=== PATIENT | male | born 1940 | race Caucasian/White ===

== ENCOUNTER 2016-09-27 14:00 | Inpatient (IN) | payer MEDICARE, BC ==
[~2016-09-27] VITALS: Ht 180.3 cm; Wt 81.6 kg
--- NOTE | 2016-09-27 14:08 | NUR ---
at the bedside.
[2016-09-27] MEDS ORDERED: IV NORMAL SALINE 1000 ML BAG IV ONE (14:15)
--- NOTE | 2016-09-27 14:17 | NUR ---
PT LEFT ER FOR CT.
[2016-09-27] MEDS ORDERED: CITA20TA11 PO (14:35)
[2016-09-27] MEDS ORDERED: TRAZ-144 PO (14:35)
[2016-09-27] MEDS ORDERED: NATE60TA4 PO (14:35)
[2016-09-27] MEDS ORDERED: MEMA28CA PO (14:35)
[2016-09-27] MEDS ORDERED: WARF3TAB6 PO (14:35)
[2016-09-27] MEDS ORDERED: QUET25TA PO ×2 (14:35)
[2016-09-27] MEDS ORDERED: DONE23TA3 PO (14:35)
[2016-09-27] MEDS ORDERED: LEVO100T10 PO (14:35)
[2016-09-27] MEDS ORDERED: LEVE500T20 PO (14:35)
[2016-09-27] MEDS ORDERED: METF500T4 PO (14:35)
[2016-09-27] MEDS ORDERED: ATOR20TA PO (14:35)
[2016-09-27 15:03] LABS: BASOPHILS # (AUTO) 0.1 K/uL (0.0-0.2); BASOPHILS % (AUTO) 0.8 % (0.0-2.0); EOSINOPHILS # (AUTO) 0.2 K/uL (0.0-0.7); EOSINOPHILS % (AUTO) 1.7 % (0.0-7.0); HEMATOCRIT 37.3 % (40.0-50.0); HEMOGLOBIN 12.6 g/dL (14.0-18.0); LYMPHOCYTES % (AUTO) 19.9 % (20.5-51.5); MEAN CORPUSCULAR HEMOGLOBIN 30.7 uug (27.0-31.0); MEAN CORPUSCULAR HGB CONC 34 g/dL (32.0-37.0); MEAN CORPUSCULAR VOLUME 90.6 fL (82.0-92.0); MONOCYTES # (AUTO) 0.7 K/uL (0.1-1.30); MONOCYTES % (AUTO) 6.7 % (0.0-11.0); NEUTROPHILS # (AUTO) 7.2 K/uL (1.8-8.9); NEUTROPHILS % (AUTO) 70.9 % (38.5-71.5); PLATELET COUNT (AUTO) 334 K/uL (150-450); RED BLOOD CELL COUNT(AUTO) 4.11 MIL/uL (4.70-6.10); RED CELL DISTRIBUTION WIDTH 14.3 % (11.5-14.5); WHITE BLOOD COUNT (AUTO) 10.2 K/uL (4.0-11.2)
[2016-09-27 15:17] LABS: CREATININE 1.2 mg/dL (0.6-1.3); POTASSIUM 4.2 mmol/L (3.5-5.1)
--- NOTE | 2016-09-27 15:37 | NUR ---
DR CORONADO SPOKE TO DR TURCIOS(PT'S PMD).
--- NOTE | 2016-09-27 15:52 | NUR ---
Full telephone SBAR report received by RECORDING STUDIO SET UP WORKERSHANE Beaulieu.
--- NOTE | 2016-09-27 16:30 | NUR ---
Pt received from ER and admitted to room #211. Pt alert, confused with family at the bedside. Pt NSR HR 60's on monitoring analyst. Pt stable and nad noted upon admission.
[2016-09-27] MEDS ORDERED: ONDANSETRON 4 MG/2 ML VIAL IV PRN (18:30)
[2016-09-27] MEDS ORDERED: DEXTROSE 50% 50 ML DISP.SYRIN IV PRN (18:30)
[2016-09-27] MEDS ORDERED: ACETAMINOPHEN 325 MG TABLET PO PRN (18:30)
[2016-09-27] MEDS ORDERED: HYDROCODONE/APAP 5-325MG TABLET PO PRN (18:30)
[2016-09-27] MEDS ORDERED: MAGNESIUM HYDROXIDE 30 ML LIQUID UDC PO PRN (18:30)
--- NOTE | 2016-09-27 18:47 | NUR ---
End of shift: Pt resting in bed awake, alert/confused with fall precautions and safety measures maintained. All needs met. Pt stable and nad noted.
[2016-09-27 19:00] VITALS: BP 125/66
[2016-09-27] MEDS: TRAZODONE 50 MG TABLET PO SCH (20:27)
[2016-09-27] MEDS: LEVETIRACETAM 500 MG TABLET PO SCH (20:28)
[2016-09-27] MEDS: DOCUSATE SODIUM 100 MG CAPSULE PO SCH (20:28)
[2016-09-27] MEDS: CITALOPRAM 20 MG TABLET PO SCH (20:28)
[2016-09-27] MEDS: ATORVASTATIN 20 MG TABLET PO SCH (20:28)
[2016-09-27] MEDS: QUETIAPINE FUMARATE 25 MG TABLET PO SCH (20:33)
[2016-09-27] MEDS ORDERED: WARFARIN SODIUM 3 MG TABLET PO SCH (21:00)
[2016-09-27] MEDS ORDERED: DOCUSATE SODIUM 250 MG CAPSULE PO SCH (21:00)
[2016-09-27] MEDS: BLOOD SUGAR DIAGNOSTIC 1 EACH STRIP VI SCH (21:05)
[2016-09-27] MEDS: INSULIN REGULAR, HUMAN 300 UNIT/3 ML VIAL SQ PRN (21:08)
[2016-09-28] VITALS (7 sets, daily range): BP systolic 108–135; BP diastolic 56–67
--- NOTE | 2016-09-28 05:49 | NUR ---
PT IN BED RESTING, SLEPT MOST SHIFT, NO EPISODES OF AGITATION. DENIES ANY PAIN. IN NO ACUTE SIGNS OF DISTRESS, SAFETY MAINTAINED. CALL LIGHT WITHIN REACH.
[2016-09-28] MEDS: BLOOD SUGAR DIAGNOSTIC 1 EACH STRIP VI SCH ×4 (06:41→21:00)
[2016-09-28] MEDS: LEVOTHYROXINE SODIUM 100 MCG TABLET PO SCH (06:42)
[2016-09-28] MEDS: PANTOPRAZOLE SODIUM 40 MG TABLET.DR PO SCH (06:42)
[2016-09-28 07:08] LABS: ALBUMIN 2.9 g/dL (3.4-5.0); BILIRUBIN,TOTAL 0.4 mg/dL (0.2-1.0); CALCIUM 8.4 mg/dL (8.5-10.1); CREATININE 0.8 mg/dL (0.6-1.3); MAGNESIUM 1.5 mg/dL (1.8-2.4); PHOSPHOROUS 3.3 mg/dL (2.5-4.9); POTASSIUM 3.9 mmol/L (3.5-5.1); TOTAL PROTEIN, SERUM 5.7 g/dL (6.4-8.2)
[2016-09-28 07:09] LABS: BASOPHILS # (AUTO) 0.1 K/uL (0.0-0.2); BASOPHILS % (AUTO) 0.9 % (0.0-2.0); EOSINOPHILS # (AUTO) 0.2 K/uL (0.0-0.7); EOSINOPHILS % (AUTO) 2.5 % (0.0-7.0); HEMATOCRIT 34.3 % (40.0-50.0); HEMOGLOBIN 11.6 g/dL (14.0-18.0); LYMPHOCYTES # (AUTO) 2.1 K/uL (0.8-4.8); LYMPHOCYTES % (AUTO) 25.4 % (20.5-51.5); MEAN CORPUSCULAR HEMOGLOBIN 30.8 uug (27.0-31.0); MEAN CORPUSCULAR HGB CONC 34 g/dL (32.0-37.0); MEAN CORPUSCULAR VOLUME 91.6 fL (82.0-92.0); MONOCYTES # (AUTO) 0.6 K/uL (0.1-1.30); MONOCYTES % (AUTO) 7.5 % (0.0-11.0); NEUTROPHILS # (AUTO) 5.2 K/uL (1.8-8.9); NEUTROPHILS % (AUTO) 63.7 % (38.5-71.5); PLATELET COUNT (AUTO) 307 K/uL (150-450); RED BLOOD CELL COUNT(AUTO) 3.75 MIL/uL (4.70-6.10); RED CELL DISTRIBUTION WIDTH 14.2 % (11.5-14.5); WHITE BLOOD COUNT (AUTO) 8.2 K/uL (4.0-11.2)
[2016-09-28 07:17] LABS: THYROID STIMULATING HORMONE 0.65 mIU/mL (0.358-3.740)
[2016-09-28] MEDS: METFORMIN HCL 500 MG TABLET PO SCH ×2 (08:27→17:05)
[2016-09-28] MEDS: NATEGLINIDE 60 MG TABLET PO SCH ×3 (08:27→17:04)
[2016-09-28] MEDS: INSULIN REGULAR, HUMAN 300 UNIT/3 ML VIAL SQ PRN ×2 (08:31→12:11)
[2016-09-28] MEDS: MAGNESIUM SULFATE/D5W 100 ML IV SCH ×2 (10:51→12:09)
--- NOTE | 2016-09-28 11:59 | NUR ---
PHARMACY [place] [facility] [place] This is a 76 Y/O male admitted after a syncopal episode with past medical history of Alzheimer's disease/dementia, TIA, hypotension, NIDDM, atrial fibrillation, hypothyroidism, depression, hyperlipidemia, -VS Temp 97.4 , BP 112/56 , Pulse 50, Resp rate 18 -Lab WBC 8.2, H/H 11.6/34.3 , Plt 307, Na 144, K 3.9, Cl 110, BUN 15, SrCr 0.7, Hba1c 7.1, Ca8.4, albumin 2.9, phos 3.3, Mg 1.5 (bolus dose given) , Lipid panel WNL, INR 1.24 Allergies: NKA CURRENT LIST OF MEDICATIONS Lipitor 20mg po hs (hyprelipidemia) Celxa 20mg po hs (home med-depression) Trazodone 50mg po hs (home med-depression) Coumadin 3mg po hs (A fib) Protonix 40mg po 0700 (GI prophylaxis) Seroquel 12.5mg po 1200 (home med-depression) Seroquel 37.5mg po hs (home med- depression) Metformin 500mg po bidm (NIDDM) Starlix 60mg po tidwm (NIDDM) Colace 200mg po hs (constipation) Accu check with mild sliding scale coverage (while in hospital) [place] 5/325 mg po q4hprn moderate to severe pain (none used so far) Keppra 500mg po hs (home med-per neurologist continue for now) Synthroid 100 mcg po 0700 (hypothyroidism) MOM 30ml po hsprn constipation Tylenol 650mg po q6hprn temp, mild pain , GUTIERREZ ALL MEDICATIONS REVIEW OF TODAY THE FOLLOWING MEDICATIONS ON HIGH RISK LIST: Celexa, seroquel , [place]- May cause ataxia, impaired psychomotor function, syncope, additional falls. Follow fall precaution measures Celexa, Seroquel- May exacerbate or cause syndrome of inappropriate antidiuretic hormone secretion or hyponatremia; monitor sodium level closely. However,NA level WNL. Per Neurologist Hold aricept in the setting of bradycardia and syncope
[2016-09-28] MEDS: QUETIAPINE FUMARATE 25 MG TABLET PO SCH ×2 (12:10→21:30)
[2016-09-28 15:45] LABS: *BILIRUBIN,URIN NEGATIVE (NEGATIVE); *BLOOD, URINE NEGATIVE (NEGATIVE); *CLARITY,URINE CLEAR (CLEAR); *COLOR,URINE YELLOW (YELLOW); *KETONES,URINE NEGATIVE (NEGATIVE); *PROTEIN,URINE NEGATIVE (NEGATIVE); *UROBILINOGEN,URINE 0.2 E.U./dl (NORMAL); LEUKOCYTE ESTERASE ,URINE NEGATIVE (NEGATIVE); NITRITE, URINE NEGATIVE (NEGATIVE); PH,URINE 5.5 (5.0-8.0); UGLUCOSE NEGATIVE (NEGATIVE)
[2016-09-28 16:30] LABS: SQUAMOUS EPITHELIAL CELL,UR FEW /HPF (NONE SEEN); WBC,URINE 0-3 /HPF (0-3)
--- NOTE | 2016-09-28 19:30 | NUR ---
Received report from SHANE Vivar. Seen patient with his (Brielle) and daughter (roseline). Pt is very responsive but demented/forgetful. Very pleasant and follows commands. Denies any pain.
--- NOTE | 2016-09-28 20:00 | NUR ---
Orthostatic BP done: Sitting up: 120/66 HR 58; Standing up : 111/66 HR 81
--- NOTE | 2016-09-28 20:42 | NUR ---
Seen by EP (electrophysiology) doctor, evaluated as per request by Dr. Méndez. See EP doctor's notes.
[2016-09-28] MEDS: CITALOPRAM 20 MG TABLET PO SCH (21:30)
[2016-09-28] MEDS: DOCUSATE SODIUM 100 MG CAPSULE PO SCH (21:30)
[2016-09-28] MEDS: ATORVASTATIN 20 MG TABLET PO SCH (21:30)
[2016-09-28] MEDS: LEVETIRACETAM 500 MG TABLET PO SCH (21:30)
[2016-09-28] MEDS: TRAZODONE 50 MG TABLET PO SCH (21:30)
--- NOTE | 2016-09-29 | NUR ---
Seen patient in his room, awake and watching TV. Encouraged pt to sleep, fixed patient and made him comfortable, stretched his linen, provided blanket, turned off TV, encouraged to close eye (pt is very compliant), pt slept right away after being told.
[2016-09-29 04:00] VITALS: BP 127/69
--- NOTE | 2016-09-29 04:00 | NUR ---
Rounds made and saw pt sleeping soundly.
--- NOTE | 2016-09-29 05:00 | NUR ---
Resting comfortably.Breathing normally.
--- NOTE | 2016-09-29 06:00 | NUR ---
Administered am meds. Encouraged pt to sleep some more.Pt reported that he slept well.
[2016-09-29] MEDS: PANTOPRAZOLE SODIUM 40 MG TABLET.DR PO SCH ×2 (06:10→08:20)
[2016-09-29] MEDS: LEVOTHYROXINE SODIUM 100 MCG TABLET PO SCH ×2 (06:10→08:21)
[2016-09-29 06:15] LABS: BASOPHILS # (AUTO) 0.1 K/uL (0.0-0.2); BASOPHILS % (AUTO) 0.9 % (0.0-2.0); EOSINOPHILS # (AUTO) 0.3 K/uL (0.0-0.7); EOSINOPHILS % (AUTO) 3.5 % (0.0-7.0); HEMATOCRIT 33.6 % (40.0-50.0); HEMOGLOBIN 11.5 g/dL (14.0-18.0); LYMPHOCYTES # (AUTO) 3.2 K/uL (0.8-4.8); LYMPHOCYTES % (AUTO) 37.3 % (20.5-51.5); MEAN CORPUSCULAR HEMOGLOBIN 31.1 uug (27.0-31.0); MEAN CORPUSCULAR HGB CONC 34 g/dL (32.0-37.0); MEAN CORPUSCULAR VOLUME 90.9 fL (82.0-92.0); MONOCYTES # (AUTO) 0.7 K/uL (0.1-1.30); MONOCYTES % (AUTO) 7.6 % (0.0-11.0); NEUTROPHILS # (AUTO) 4.3 K/uL (1.8-8.9); NEUTROPHILS % (AUTO) 50.7 % (38.5-71.5); PLATELET COUNT (AUTO) 298 K/uL (150-450); RED CELL DISTRIBUTION WIDTH 13.9 % (11.5-14.5); WHITE BLOOD COUNT (AUTO) 8.6 K/uL (4.0-11.2)
[2016-09-29 06:57] LABS: BILIRUBIN,TOTAL 0.4 mg/dL (0.2-1.0); CALCIUM 8.7 mg/dL (8.5-10.1); CREATININE 0.9 mg/dL (0.6-1.3); MAGNESIUM 1.6 mg/dL (1.8-2.4); PHOSPHOROUS 3.2 mg/dL (2.5-4.9); POTASSIUM 3.8 mmol/L (3.5-5.1); TOTAL PROTEIN, SERUM 5.7 g/dL (6.4-8.2)
--- NOTE | 2016-09-29 07:05 | NUR ---
Report to SHANE Pradhan. Pt is currenty asleep.
[2016-09-29] MEDS: BLOOD SUGAR DIAGNOSTIC 1 EACH STRIP VI SCH ×4 (07:33→20:29)
[2016-09-29] MEDS: METFORMIN HCL 500 MG TABLET PO SCH ×2 (08:20→18:47)
[2016-09-29] MEDS: CHOLECALCIFEROL 1,000 UNIT TABLET PO SCH (08:20)
[2016-09-29] MEDS: NATEGLINIDE 60 MG TABLET PO SCH ×3 (08:20→17:10)
[2016-09-29] MEDS: MAGNESIUM SULFATE/D5W 100 ML IV SCH ×2 (10:20→10:22)
--- NOTE | 2016-09-29 11:45 | NUR ---
ORTHOSTATIC B/P= VCAGC=253/66, SITTING 131/78, STANDING 103/63 Addendum: 09/29/16 at 1526 by ESPERANZA KRAMER RN PULSE LYING= 52, PULSE SITTING= 54, PULSE STANDING= 65
[2016-09-29 11:50] VITALS: BP 105/58
[2016-09-29] MEDS: QUETIAPINE FUMARATE 25 MG TABLET PO SCH ×2 (12:43→20:21)
[2016-09-29] MEDS: INSULIN REGULAR, HUMAN 300 UNIT/3 ML VIAL SQ PRN ×2 (12:52→20:32)
[2016-09-29 15:42] VITALS: BP 131/78
[2016-09-29 19:00] VITALS: BP 108/64
--- NOTE | 2016-09-29 19:00 | NUR ---
AWAKE,COFUSED.DOESNT KNOW WHERE HE IS.UP TO THE BATHROOM WITH HELP. FALL PRECAUTION.BED ALARM ON, SIDE RAILS UP.
[2016-09-29] MEDS: DOCUSATE SODIUM 100 MG CAPSULE PO SCH (20:19)
[2016-09-29] MEDS: ATORVASTATIN 20 MG TABLET PO SCH (20:19)
[2016-09-29] MEDS: TRAZODONE 50 MG TABLET PO SCH (20:21)
[2016-09-29] MEDS: LEVETIRACETAM 500 MG TABLET PO SCH (20:21)
[2016-09-29] MEDS: CITALOPRAM 20 MG TABLET PO SCH (20:21)
[2016-09-29 20:49] VITALS: BP_SYST 108; BP_SYST 118; BP_SYST 99; BP_DIAS 61; BP_DIAS 65
--- NOTE | 2016-09-29 20:53 | NUR ---
STANDING 99/61 PULSE 86 SITTING 118/65 PULSE65 LYING 108/64 PULSE 54 Addendum: 09/29/16 at 2055 by NAKUL WANG RN Amended: Links added.
[2016-09-29 20:57] VITALS: BP 108/64
[2016-09-30 04:00] VITALS: BP 148/80
--- NOTE | 2016-09-30 06:16 | NUR ---
SLEPT AT INTERVALS,IN NO ACUTE DISTRESS.
[2016-09-30] MEDS: BLOOD SUGAR DIAGNOSTIC 1 EACH STRIP VI SCH ×4 (06:27→21:24)
[2016-09-30 06:49] LABS: BASOPHILS # (AUTO) 0.1 K/uL (0.0-0.2); BASOPHILS % (AUTO) 0.9 % (0.0-2.0); EOSINOPHILS # (AUTO) 0.3 K/uL (0.0-0.7); EOSINOPHILS % (AUTO) 3.9 % (0.0-7.0); HEMATOCRIT 35.7 % (40.0-50.0); LYMPHOCYTES % (AUTO) 34.4 % (20.5-51.5); MEAN CORPUSCULAR HEMOGLOBIN 30.4 uug (27.0-31.0); MEAN CORPUSCULAR HGB CONC 34 g/dL (32.0-37.0); MONOCYTES # (AUTO) 0.7 K/uL (0.1-1.30); MONOCYTES % (AUTO) 7.7 % (0.0-11.0); NEUTROPHILS # (AUTO) 4.7 K/uL (1.8-8.9); NEUTROPHILS % (AUTO) 53.1 % (38.5-71.5); PLATELET COUNT (AUTO) 309 K/uL (150-450); RED BLOOD CELL COUNT(AUTO) 3.96 MIL/uL (4.70-6.10); RED CELL DISTRIBUTION WIDTH 14.1 % (11.5-14.5); WHITE BLOOD COUNT (AUTO) 8.8 K/uL (4.0-11.2)
[2016-09-30] MEDS: METFORMIN HCL 500 MG TABLET PO SCH ×2 (08:04→18:25)
[2016-09-30] MEDS: CHOLECALCIFEROL 1,000 UNIT TABLET PO SCH (08:04)
[2016-09-30] MEDS: NATEGLINIDE 60 MG TABLET PO SCH ×3 (08:04→18:24)
[2016-09-30 08:09] LABS: ALBUMIN 3.1 g/dL (3.4-5.0); BILIRUBIN,TOTAL 0.3 mg/dL (0.2-1.0); CREATININE 0.9 mg/dL (0.6-1.3); MAGNESIUM 1.5 mg/dL (1.8-2.4); PHOSPHOROUS 3.1 mg/dL (2.5-4.9); POTASSIUM 3.8 mmol/L (3.5-5.1)
[2016-09-30 11:20] VITALS: BP 129/72
[2016-09-30] MEDS: QUETIAPINE FUMARATE 25 MG TABLET PO SCH ×2 (11:44→21:19)
[2016-09-30] MEDS: INSULIN REGULAR, HUMAN 300 UNIT/3 ML VIAL SQ PRN ×2 (11:46→21:30)
[2016-09-30] MEDS ORDERED: LIDOCAINE HCL 1% 20 ML VIAL ONE (13:59)
[2016-09-30] MEDS ORDERED: BACITRACIN 50,000 UNITS VIAL ONE (14:04)
[2016-09-30] MEDS: MAGNESIUM SULFATE/D5W 100 ML IV SCH ×2 (14:31→18:24)
[2016-09-30 15:51] VITALS: BP 130/67
--- NOTE | 2016-09-30 16:00 | NUR ---
OR staff here to bulk picker patient for surgery to insert loop recorder. Transferred by bed to OR with 2 assist in no acute distress. NPO since 0800. Diaper just changed for incontinence of urine. Saline lock intact to right forearm.
[2016-09-30] MEDS ORDERED: CEFAZOLIN 1 G VIAL MC ONE (16:49)
[2016-09-30] MEDS ORDERED: LIDOCAINE 1%-EPI 1:100,000 20 ML VIAL ONE (17:16)
--- NOTE | 2016-09-30 18:15 | NUR ---
RETURNED FROM SURGERY. AWAKE, AND ALERT IN NO ACUTE DISTRESS. LEFT CHEST WITH SMALL SURGICAL INCISION CLEAN AND DRY. NO DRAINAGE, SWELLING OR BRUISING. ACCUCHECK DONE- 86. DINNER GIVEN. ALL PM MEDS GIVEN INCLUDING COUMADIN WHICH WAS OK'D BY DR PURDY TO GIVE TODAY. INR IS 1.26. SECOND BAG OFMAGNESIUM IVPB HUNG FOR A LEVEL OF 1.6 TODAY. SAFETY AND COMFORT PROVIDED BY STAFF. AND REPORT WILL BE GIVEN TO CLEMENTE LYNN.
[2016-09-30] MEDS: WARFARIN SODIUM 3 MG TABLET PO SCH (18:27)
--- NOTE | 2016-09-30 19:45 | NUR ---
PATIENT IN BED AWAKE ALERT AND ORIENTED TO NAME AND PLACE ONLY, FORGETFUL, ABLE TO MAKE NEEDS KNOWN. NO ACUTE DISTRESS. NO SOB NOTED/REPORTED. VS ARE STABLE. PT AFEBRILE. NO C/O PAIN OR DIZZINESS. SURGICAL SITE INTACT, NO REDNESS OR S/S OF INFECTION NOTED. FAMILY AT BEDSIDE. ON FALL PRECAUTIONS. CALL LIGHT IN REACH AND SAFETY MEASURES IN PLACE. WILL CONTINUE MONITORING.
[2016-09-30 20:00] VITALS: BP 119/64
[2016-09-30] MEDS: CITALOPRAM 20 MG TABLET PO SCH (21:18)
[2016-09-30] MEDS: LEVETIRACETAM 500 MG TABLET PO SCH (21:18)
[2016-09-30] MEDS: TRAZODONE 50 MG TABLET PO SCH (21:20)
[2016-09-30] MEDS: ATORVASTATIN 20 MG TABLET PO SCH (21:20)
[2016-09-30] MEDS: DOCUSATE SODIUM 100 MG CAPSULE PO SCH (21:21)
--- NOTE | 2016-09-30 21:40 | NUR ---
PT SEEN BY MD ALEMAN.
[2016-10-01 05:47] VITALS: BP 123/62
[2016-10-01] MEDS: PANTOPRAZOLE SODIUM 40 MG TABLET.DR PO SCH (06:33)
[2016-10-01] MEDS: LEVOTHYROXINE SODIUM 100 MCG TABLET PO SCH (06:33)
[2016-10-01] MEDS: BLOOD SUGAR DIAGNOSTIC 1 EACH STRIP VI SCH ×4 (06:35→21:58)
--- NOTE | 2016-10-01 06:51 | NUR ---
PT IN BED RESTING, NO ACUTE DISTRESS NOTED. SLEPT WELL THROUGHOUT THE SHIFT. NO S/S OF RESPIRATORY DISTRESS OBSERVED. NO C/O PAIN. VS STABLE. NEEDS MET. CALL LIGHT WITHIN REACH. SAFETY MAINTAINED.
[2016-10-01 07:47] LABS: BASOPHILS # (AUTO) 0.1 K/uL (0.0-0.2); BASOPHILS % (AUTO) 0.9 % (0.0-2.0); EOSINOPHILS # (AUTO) 0.2 K/uL (0.0-0.7); EOSINOPHILS % (AUTO) 2.7 % (0.0-7.0); HEMATOCRIT 35.4 % (40.0-50.0); LYMPHOCYTES # (AUTO) 2.3 K/uL (0.8-4.8); LYMPHOCYTES % (AUTO) 26.6 % (20.5-51.5); MEAN CORPUSCULAR HGB CONC 34 g/dL (32.0-37.0); MEAN CORPUSCULAR VOLUME 91.5 fL (82.0-92.0); MONOCYTES # (AUTO) 0.6 K/uL (0.1-1.30); MONOCYTES % (AUTO) 7.1 % (0.0-11.0); NEUTROPHILS # (AUTO) 5.6 K/uL (1.8-8.9); NEUTROPHILS % (AUTO) 62.7 % (38.5-71.5); PLATELET COUNT (AUTO) 316 K/uL (150-450); RED BLOOD CELL COUNT(AUTO) 3.86 MIL/uL (4.70-6.10); WHITE BLOOD COUNT (AUTO) 8.8 K/uL (4.0-11.2)
[2016-10-01 08:00] LABS: CALCIUM 8.6 mg/dL (8.5-10.1); CREATININE 0.8 mg/dL (0.6-1.3); MAGNESIUM 1.8 mg/dL (1.8-2.4); PHOSPHOROUS 3.8 mg/dL (2.5-4.9); POTASSIUM 3.9 mmol/L (3.5-5.1)
--- NOTE | 2016-10-01 08:00 | NUR ---
MORE CALM TODAY.LESS CONFUSED. LEFT CHEST SITE LOOP RECORDER SLIGHTLY BRUISED AND SWOLLEN BUT WITHOUT DRAINAGE OR PAIN AT SITE. ON FALL AND ASPIRATION PRECAUTIONS. TAKING PILLS WHOLE WITH WATER AND DOUBLE SWALLOW. BED ALARM ON. SAFETY PRECAUTIONS AND COMFORT PROVIDED
[2016-10-01] MEDS: METFORMIN HCL 500 MG TABLET PO SCH ×2 (08:27→17:20)
[2016-10-01] MEDS: NATEGLINIDE 60 MG TABLET PO SCH ×3 (08:27→17:22)
[2016-10-01] MEDS: CHOLECALCIFEROL 1,000 UNIT TABLET PO SCH (08:27)
[2016-10-01] MEDS: QUETIAPINE FUMARATE 25 MG TABLET PO SCH ×2 (11:35→21:43)
[2016-10-01] MEDS: INSULIN REGULAR, HUMAN 300 UNIT/3 ML VIAL SQ PRN (11:38)
[2016-10-01 12:07] VITALS: BP 112/60
[2016-10-01 15:37] VITALS: BP 116/68
[2016-10-01] MEDS: WARFARIN SODIUM 3 MG TABLET PO SCH (17:22)
--- NOTE | 2016-10-01 17:30 | NUR ---
NO CHANGE IN NEURO STATUS OVER THE SHIFT. ABLE TO GET OOB TO BATHROOM TO ATTEMPT BM WITH ASSISTANCE. NO RESULTS. NO CHANGE IN LOOP RECORDER CHEST SITE. SALINE LOCK INTACT AND PATIENT. CALL LIGHT IN REACH AAT
[2016-10-01 20:00] VITALS: BP 120/71
[2016-10-01] MEDS: ATORVASTATIN 20 MG TABLET PO SCH (21:42)
[2016-10-01] MEDS: CITALOPRAM 20 MG TABLET PO SCH (21:42)
[2016-10-01] MEDS: TRAZODONE 50 MG TABLET PO SCH (21:42)
[2016-10-01] MEDS: LEVETIRACETAM 500 MG TABLET PO SCH (21:42)
[2016-10-01] MEDS: DOCUSATE SODIUM 100 MG CAPSULE PO SCH (21:42)
[2016-10-02 05:12] VITALS: BP 118/69
[2016-10-02] MEDS: LEVOTHYROXINE SODIUM 100 MCG TABLET PO SCH (06:07)
[2016-10-02] MEDS: PANTOPRAZOLE SODIUM 40 MG TABLET.DR PO SCH (06:07)
[2016-10-02 06:38] LABS: ALBUMIN 3.1 g/dL (3.4-5.0); BILIRUBIN,TOTAL 0.3 mg/dL (0.2-1.0); CALCIUM 8.7 mg/dL (8.5-10.1); CREATININE 0.8 mg/dL (0.6-1.3); MAGNESIUM 1.6 mg/dL (1.8-2.4); PHOSPHOROUS 2.9 mg/dL (2.5-4.9); POTASSIUM 3.9 mmol/L (3.5-5.1); TOTAL PROTEIN, SERUM 5.8 g/dL (6.4-8.2)
[2016-10-02 06:49] LABS: BASOPHILS # (AUTO) 0.1 K/uL (0.0-0.2); EOSINOPHILS # (AUTO) 0.2 K/uL (0.0-0.7); EOSINOPHILS % (AUTO) 2.9 % (0.0-7.0); HEMATOCRIT 34.1 % (40.0-50.0); HEMOGLOBIN 11.7 g/dL (14.0-18.0); LYMPHOCYTES # (AUTO) 2.9 K/uL (0.8-4.8); LYMPHOCYTES % (AUTO) 35.3 % (20.5-51.5); MEAN CORPUSCULAR HEMOGLOBIN 31.2 uug (27.0-31.0); MEAN CORPUSCULAR HGB CONC 34 g/dL (32.0-37.0); MONOCYTES # (AUTO) 0.6 K/uL (0.1-1.30); MONOCYTES % (AUTO) 7.5 % (0.0-11.0); NEUTROPHILS # (AUTO) 4.5 K/uL (1.8-8.9); NEUTROPHILS % (AUTO) 53.3 % (38.5-71.5); PLATELET COUNT (AUTO) 289 K/uL (150-450); RED BLOOD CELL COUNT(AUTO) 3.75 MIL/uL (4.70-6.10); RED CELL DISTRIBUTION WIDTH 13.6 % (11.5-14.5); WHITE BLOOD COUNT (AUTO) 8.3 K/uL (4.0-11.2)
[2016-10-02] MEDS: NATEGLINIDE 60 MG TABLET PO SCH ×2 (08:00→11:39)
[2016-10-02] MEDS: CHOLECALCIFEROL 1,000 UNIT TABLET PO SCH (08:00)
[2016-10-02] MEDS: METFORMIN HCL 500 MG TABLET PO SCH (08:00)
[2016-10-02] MEDS: BLOOD SUGAR DIAGNOSTIC 1 EACH STRIP VI SCH ×2 (08:07→11:39)
[2016-10-02] MEDS ORDERED: MAGNESIUM SULFATE/D5W 100 ML IV SCH (09:45)
[2016-10-02] MEDS ORDERED: TRAZ-144 PO (11:10)
[2016-10-02] MEDS ORDERED: CHOL10002 PO (11:10)
[2016-10-02 11:12] VITALS: BP 118/65
[2016-10-02] MEDS: QUETIAPINE FUMARATE 25 MG TABLET PO SCH (11:39)
[2016-10-02] MEDS: INSULIN REGULAR, HUMAN 300 UNIT/3 ML VIAL SQ PRN (11:43)
--- NOTE | 2016-10-02 14:19 | NUR ---
The patient will be discharged today back to [facility]& [ ; [address], [place] [address]; contact - Vero Spencer ] per Beba Duron IMPROVEMENT DIRECTOR. Spoke to his daughter, Nicolasa Collazo [ ], and she confirmed that they do not want any SNF placement. He does have an open episode with [facility] [ ; ] and Jina confirmed that they will continue their services. His RN, Girma, is aware of his discharge plan.
[2016-10-02 14:54] VITALS: BP 120/72
[2016-10-02] MEDS ORDERED: PROPOFOL 200 MG/20 ML BOTTLE IV ONE (15:47)
[2016-10-02] MEDS ORDERED: LIDOCAINE-MPF 2% 5 ML VIAL MC ONE (15:47)
[2016-10-02] MEDS ORDERED: EPHEDRINE SULFATE 50 MG/ML AMPUL MC ONE (15:47)
--- NOTE | 2016-10-02 15:48 | NUR ---
PATIENT BEEN DISCHARGE HOME. NO S/S OF ACUTE DISTRESS OR PAIN NOTED. GOOD APPETITE DURING THE DAY. INCISION SITE WAS DRY AND CLEAN, NO SIGNS OF INFECTION. DISCHARGE INSTRUCTIONS EXPLAINED, SIGNED BY PATIENT. A COPY WAS PROVIDED. BELONGINGS WERE TAKEN. IV AND ID BAND WAS REMOVED. PATIENT WAS TAKEN BY WHEELCHAIR ACCOMPANIED BY ELOISA. SAFETY AND COMFORT WAS PROVIDED DURING THE DAY.
== END 2016-10-02 15:48 | disposition home or self-care (01) | DRG 261 ==
LOC: ER 14:06 → TELE 15:59 → MED 09-29 17:47
PROVIDERS: ADMIT Internal Medicine; ATTEND Internal Medicine
PROC: 0JH632Z Insertion of Monitoring Device into Chest Subcutaneous Tissue and Fascia, Percutaneous Approach (ICD-10-PCS; principal; 2016-09-30 17:30)
DX: I49.5 Sick sinus syndrome (principal); E44.0 Moderate protein-calorie malnutrition; J98.11 Atelectasis; D68.9 Coagulation defect, unspecified; F02.80 Dementia in other diseases classified elsewhere, unspecified severity, without behavioral disturbance, psychotic disturbance, mood disturbance, and anxiety; G30.9 Alzheimer's disease, unspecified; E03.9 Hypothyroidism, unspecified; E83.42 Hypomagnesemia; I48.2 Chronic atrial fibrillation; D64.9 Anemia, unspecified; I48.0 Paroxysmal atrial fibrillation; Z86.73 Personal history of transient ischemic attack (TIA), and cerebral infarction without residual deficits; Z87.891 Personal history of nicotine dependence; E11.65 Type 2 diabetes mellitus with hyperglycemia; Z79.01 Long term (current) use of anticoagulants; F32.9 Major depressive disorder, single episode, unspecified; I95.1 Orthostatic hypotension; I34.0 Nonrheumatic mitral (valve) insufficiency; I36.1 Nonrheumatic tricuspid (valve) insufficiency; Z68.25 Body mass index [BMI] 25.0-25.9, adult; E78.5 Hyperlipidemia, unspecified; G40.909 Epilepsy, unspecified, not intractable, without status epilepticus; Z79.84 Long term (current) use of oral hypoglycemic drugs; I65.23 Occlusion and stenosis of bilateral carotid arteries
CPT/HCPCS: 36415; 70030-TC; 70450; 71010; 82306; 83550; 83735; 84100; 84443; 85025; 85610; 85730; 87086; 92506; 93005; 93307; 93880; 97001; 97003; A4649; A4663; J0690; J1815; J3475; J3490; J7030